=== PATIENT | male | born 1965 | race Caucasian/White ===

== ENCOUNTER 2020-06-04 08:03 | Emergency (ER) | payer BC ==
[2020-06-04 08:20] VITALS: TEMP 98.1
--- NOTE | 2020-06-04 08:33 | ED ---
Skin/Abscess/FB HPI - General Source: patient Mode of arrival: ambulatory Limitations: no limitations <Yumiko Mandujano - Last Filed: 06/04/20 09:35> <Mirta Baum - Last Filed: 06/05/20 15:57> - General Chief complaint: Skin/Abscess/Foreign Body Stated complaint: Left side pain Time Seen by Provider: 06/04/20 08:21 - History of Present Illness Initial comments: 55-year-old male presenting today for chief complaint of left flank bruising. Patient states that he over swelling during a softball game on the when he felt a pain in his side like he strained something. He states he had a localized area that was tender to touch Bruised next day. States bruising is no present more anterior and posteriorly rather than localized to the flank. Denies significant pain, denies CP, SOB, history of AAA, abdominal pain, nausea, vomiting, lightheadedness, denies anticoagulation use. Denies direct blunt trauma. Patient denies epigastric pain. No additional complaints. upon arrival patient appears well there is no signs of acute distress. (Yumiko Mandujano) - Related Data Home Medications Medication Instructions Recorded Confirmed No Known Home Medications 10/04/16 10/04/16 Allergies Allergy/AdvReac Type Severity Reaction Status Date / Time No Known Allergies Allergy Verified 06/04/20 08:16 Review of Systems ROS Other: All systems not noted in ROS Statement are negative. <Yumiko Mandujano - Last Filed: 06/04/20 09:35> ROS Other: All systems not noted in ROS Statement are negative. <Mirta Baum - Last Filed: 06/05/20 15:57> ROS Statement: Those systems with pertinent positive or pertinent negative responses have been documented in the HPI. Past Medical History Past Medical History: No Reported History History of Any Multi-Drug Resistant Organisms: MRSA Date of last positivie culture/infection: 2012 MDRO Source:: face Past Surgical History: No Surgical Hx Reported Past Psychological History: No Psychological Hx Reported Smoking Status: Never smoker Past Alcohol Use History: None Reported Past Drug Use History: None Reported <Yumiko Mandujano - Last Filed: 06/04/20 09:35> General Exam Limitations: no limitations <Yumiko Mandujano - Last Filed: 06/04/20 09:35> - General Exam Comments Initial Comments: General: The patient is awake and alert, in no distress, and does not appear acutely ill. Eye: Pupils are equal, round and reactive to light, extra-ocular movements are intact. No nystagmus. There is normal conjunctiva bilaterally. No signs of icterus. Gastrointestinal: Soft, non-distended, non-tender abdomen without masses or organomegaly noted. There is no rebound or guarding present. No CVA tenderness. No masses. Musculoskeletal: Normal ROM, no tenderness. Strength 5/5. Sensation intact. Pulses equal bilaterally 2+. Neurological: A&O x 3. CN II-XII intact grossly, There are no obvious motor or sensory deficits. Coordination appears grossly intact. Speech is normal. Skin: Skin is warm and dry and no rashes. Ecchymosis that is light purple, yellow in color on the left side just superior to hip, point localized area of tenderness midline side. Patient winces. No pain along other aspect of the bruising. Psychiatric: Cooperative, appropriate mood & affect, normal judgment. (Yumiko Mandujano) Course Vital Signs 06/04/20 06/04/20 08:16 09:03 Temperature 98.1 F Pulse Rate 90 89 Respiratory 18 16 Rate Blood Pressure 113/70 121/79 O2 Sat by Pulse 98 99 Oximetry Medical Decision Making <Yumiko Mandujano - Last Filed: 06/04/20 09:35> <Mirta Baum - Last Filed: 06/05/20 15:57> - Medical Decision Making 55yo male presenting for flank pain after stretching, point localized tenderness, bruising, it appears old. US performed bedside by Dr. Baum, hematoma noted. Small. I feel ecchymosis had spread from hematoma due to positioning at night. Patient appears well not distress. recommend symptomatic treatment, applying heat-monitoring, tylenol for pain. Patietn is agreeable to care plan and discharge as is my attending provider. (Yumiko Mandujano) I was available for consultation in the emergency department. The history and physical exam were done by the midlevel provider. I was consulted for this patients care. I reviewed the case with the midlevel provider and based on their presentation of the patient, I agree with the assessment, medical decision making and plan of care as documented. I performed a bedside soft tissue ultrasound which demonstrated a small subcutaneous hematoma measuring 2.0 x 2.0 cm. No fluid in the splenorenal fossa. Normal peristalsing bowel. Spleen and kidney with normal contours. Chart was dictated using [employer] dictation software. Attempts were made to correct any dictation errors however some typographical errors may persist. Patient was seen during a national state of emergency due to the Covid-19 pandemic. (Mirta Baum) Disposition Is patient prescribed a controlled substance at d/c from ED?: No Time of Disposition: 08:33 <Yumiko Mandujano - Last Filed: 06/04/20 09:35> <Mirta Baum - Last Filed: 06/05/20 15:57> Clinical Impression: Hematoma, Muscle tear, Ecchymosis Disposition: HOME SELF-CARE Condition: Good Instructions (If sedation given, give patient instructions): Ecchymosis (ED) Additional Instructions: Please use medication as discussed. Please follow-up with family doctor in the next 2 days. Please return to emergency room if the symptoms increase or worsen or for any other concerns. Referrals: None,Stated [Primary Care Provider] - 1-2 days
[2020-06-04 09:05] VITALS: BP 121/79; PULSE 89; RESP 16
== END 2020-06-04 09:04 | disposition home or self-care (01) ==
LOC: EC 08:03
DX: S30.1XXA Contusion of abdominal wall, initial encounter (principal); X58.XXXA Exposure to other specified factors, initial encounter; Y93.64 Activity, baseball
CPT/HCPCS: 99283

== ENCOUNTER 2022-03-31 07:46 | Inpatient (IN) | payer BC ==
[2022-03-31] MEDS ORDERED: KETOROLAC 15 MG/ML 1 ML VIAL IM STA (08:11)
--- NOTE | 2022-03-31 08:55 | ED ---
General Adult HPI - General Chief complaint: Fall Stated complaint: fall 4' from ladder, back pain Time Seen by Provider: 03/31/22 08:00 Source: patient, RN notes reviewed, old records reviewed Mode of arrival: ambulatory Limitations: no limitations - History of Present Illness Initial comments: This is a 56-year-old male who presents emergency Department complaining that he fell off of a ladder and he was about 4 feet high. Patient states he landed on his upper left back in the rib area. Patient states he only area of tenderness is along the ribs in the back. Patient states it hurts take a deep breath but is not short of breath. Patient denies any anterior chest pain. Patient denies any back pain in the center of his back. Patient denies any lower back pain. Patient denies any abdominal pain. Patient denies any extremity pain. Patient denies hitting his head or neck. Patient denies headache or neck pain - Related Data Home Medications Medication Instructions Recorded Confirmed No Known Home Medications 10/04/16 03/31/22 Allergies Allergy/AdvReac Type Severity Reaction Status Date / Time No Known Allergies Allergy Verified 03/31/22 09:44 Review of Systems ROS Statement: Those systems with pertinent positive or pertinent negative responses have been documented in the HPI. ROS Other: All systems not noted in ROS Statement are negative. Past Medical History Past Medical History: No Reported History History of Any Multi-Drug Resistant Organisms: MRSA Date of last positivie culture/infection: 2012 MDRO Source:: face Past Surgical History: No Surgical Hx Reported Past Psychological History: No Psychological Hx Reported Smoking Status: Never smoker Past Alcohol Use History: None Reported Past Drug Use History: None Reported General Exam - General Exam Comments Initial Comments: GENERAL: Patient is well-developed and well-nourished. Patient is nontoxic and well-hydrated and is in mild distress. ENT: Neck is soft and supple. No significant lymphadenopathy is noted. Oropharynx is clear. Moist mucous membranes. Neck has full range of motion without eliciting any pain. EYES: The sclera were anicteric and conjunctiva were pink and moist. Extraocular movements were intact and pupils were equal round and reactive to light. Eyelids were unremarkable. PULMONARY: Unlabored respirations. Good breath sounds bilaterally. No audible rales rhonchi or wheezing was noted. CARDIOVASCULAR: There is a regular rate and rhythm without any murmurs gallops or rubs. Patient has tenderness to the posterior left rib cage. ABDOMEN: Soft and nontender with normal bowel sounds. SKIN: Skin is clear with no lesions or rashes and otherwise unremarkable. NEUROLOGIC: Patient is alert and oriented x3. Cranial nerves II through XII are grossly intact. Motor and sensory are also intact. Normal speech, volume and content. Symmetrical smile. MUSCULOSKELETAL: Normal extremities with adequate strength and full range of motion. LYMPHATICS: No significant lymphadenopathy is noted PSYCHIATRIC: Normal psychiatric evaluation. Limitations: no limitations Course Vital Signs 03/31/22 03/31/22 07:57 11:31 Temperature 98.2 F Pulse Rate 69 68 Respiratory 18 16 Rate Blood Pressure 127/83 111/70 O2 Sat by Pulse 95 96 Oximetry Procedures - Chest Tube Insertion Consent Obtained: verbal consent Side of Procedure: left Indication: Pneumothorax Placed on monitor/pulse oximetry: Yes Site Prep: Povidone-Iodine Local Anesthesia: Lidocaine 1% Insertion Site: Midaxillary, Other (Second intercostal space) Tube Size (Yoruba): Other (Thoravent was used) Returns: Air Sutured in Place: No Attached to Suction: No Type of Suction: Other (Thoravent) Repeat X-ray Results: Lung Inflated Medical Decision Making - Medical Decision Making Chest x-ray and rib x-rays show a fourth fractured rib posteriorly as well as a 5820% pneumothorax. I also believe there is a rib on the lateral aspect about rib 8 that appears to have potential fracture. I placed the thoravent and the patient and on re-x-ray of the chest showed complete resolution of the pneumothorax. Placement of the thoravent looked in good position. I spoke with Dr. Boothe he agreed to admit the patient admitted the patient I consult the cardiothoracic pulmonary and Dr. Mccauley. - Lab Data Result diagrams: 03/31/22 11:06 03/31/22 11:06 Lab Results 03/31/22 03/31/22 Range/Units 11:06 11:06 WBC 12.2 H (3.8-10.6) k/uL RBC 4.65 (4.30-5.90) m/uL Hgb 14.8 (13.0-17.5) gm/dL Hct 44.2 (39.0-53.0) % MCV 95.2 (80.0-100.0) fL MCH 31.8 (25.0-35.0) pg MCHC 33.4 (31.0-37.0) g/dL RDW 12.6 (11.5-15.5) % Plt Count 200 (150-450) k/uL MPV 7.4 Neutrophils % 70 % Lymphocytes % 23 % Monocytes % 5 % Eosinophils % 1 % Basophils % 0 % Neutrophils # 8.5 H (1.3-7.7) k/uL Lymphocytes # 2.7 (1.0-4.8) k/uL Monocytes # 0.6 (0-1.0) k/uL Eosinophils # 0.1 (0-0.7) k/uL Basophils # 0.0 (0-0.2) k/uL Sodium 142 (137-145) mmol/L Potassium 4.3 (3.5-5.1) mmol/L Chloride 106 (98-107) mmol/L Carbon Dioxide 24 (22-30) mmol/L Anion Gap 12 mmol/L BUN 21 H (9-20) mg/dL Creatinine 1.17 (0.66-1.25) mg/dL Est GFR (CKD-EPI)AfAm 79 (>60 ml/min/1.73 sqM) Est GFR (CKD-EPI)NonAf 68 (>60 ml/min/1.73 sqM) Glucose 137 H (74-99) mg/dL Calcium 9.2 (8.4-10.2) mg/dL Total Bilirubin 0.8 (0.2-1.3) mg/dL AST 37 (17-59) U/L ALT 23 (4-49) U/L Alkaline Phosphatase 79 (38-126) U/L Total Protein 7.8 (6.3-8.2) g/dL Albumin 4.6 (3.5-5.0) g/dL Disposition Clinical Impression: Rib fractures, Pneumothorax Disposition: ADMITTED IP TO THIS HOSP Referrals: None,Stated [Primary Care Provider] - 1-2 days Time of Disposition: 13:28
--- NOTE | 2022-03-31 09:20 | XR ---
EXAMINATION TYPE: XR ribs LT w pa chest xray DATE OF EXAM: 03/31/2022 CLINICAL HISTORY: Chest and left-sided rib pain after fall injury. TECHNIQUE: Single frontal view of the chest is obtained. A frontal and oblique images left-sided ribs . COMPARISON: Chest x-ray September 25, 2011 FINDINGS: There is a small size left pneumothorax near 20%. There is adjacent displaced fracture of the posterior left fourth rib. There is left basilar opacity. Right lung is clear. The cardiac silhou ette size is upper limits of normal. Dedicated rib images show no definitive additional displaced fractures. IMPRESSION: 1. Acute displaced posterior left fourth rib fracture 2. Small left apical pneumothorax estimated 15-20% with left basilar small to tiny pleural fluid fritz ection or blood product and associated basilar atelectasis and/or infiltrate. Critical results communicated to emergency room physician via telephone at time of dictation.
[2022-03-31] MEDS ORDERED: HYDROmorphone 0.5 MG/0.5 ML SYRINGE IVP STA (10:16)
[2022-03-31] MEDS ORDERED: KETOROLAC 15 MG/ML 1 ML VIAL IVP STA (10:16)
[2022-03-31] MEDS ORDERED: LIDOCAINE 1% INJ 10MG/ML (5 ML VIAL-PF) SQ ONE (10:16)
[2022-03-31] MEDS ORDERED: MIDAZOLAM 1 MG/ML 5 ML VIAL IV STA (11:18)
[2022-03-31 11:31] LABS: Albumin 4.6 g/dL (3.5-5.0); Calcium 9.2 mg/dL (8.4-10.2); Potassium 4.3 mmol/L (3.5-5.1); Total Bilirubin 0.8 mg/dL (0.2-1.3); Total Protein 7.8 g/dL (6.3-8.2)
[2022-03-31 11:33] LABS: Basophils % (A) 0 %; Eosinophils # (A) 0.1 k/uL (0-0.7); Eosinophils % (A) 1 %; HCT 44.2 % (39.0-53.0); HGB 14.8 gm/dL (13.0-17.5); Lymphocytes # (A) 2.7 k/uL (1.0-4.8); Lymphocytes % (A) 23 %; MCH 31.8 pg (25.0-35.0); MCHC 33.4 g/dL (31.0-37.0); MCV 95.2 fL (80.0-100.0); Mean Platelet Volume 7.4; Monocytes # (A) 0.6 k/uL (0-1.0); Monocytes % (A) 5 %; Neutrophils # (A) 8.5 k/uL (1.3-7.7); Neutrophils % (A) 70 %; Platelet Count 200 k/uL (150-450); RBC 4.65 m/uL (4.30-5.90); RDW 12.6 % (11.5-15.5); WBC 12.2 k/uL (3.8-10.6)
--- NOTE | 2022-03-31 13:13 | XR ---
EXAMINATION TYPE: XR chest 2V DATE OF EXAM: 03/31/2022 COMPARISON: X-ray performed earlier same day HISTORY: Follow-up post-chest tube insertion for left-sided pneumothorax TECHNIQUE: Frontal and lateral views of the chest are obtained. FINDINGS: Interval insertion of a left anterior chest tube with the apex seen at the lateral aspect of the left upper lung zone. Redemonstration of the slightly displaced fracture of the posterior aspect of the l eft fourth rib. Interval regression of the left sided pneumothorax with residual left apical pneumoth orax measuring up to 7 mm. Persistent small left pleural fluid/hemothorax with suspected left basal pulmonary atelectasis. Uncha nged remainder of the lungs. No right-sided pleural effusion or right-sided pneumothorax. No gross ca rdiomegaly. IMPRESSION: Interval insertion of the left chest tube with smaller left-sided pneumothorax as described above.
[2022-03-31] MEDS ORDERED: HYDROcodone/APAP 5-325MG 1 EACH TAB PO PRN (13:29)
[2022-03-31] MEDS ORDERED: NALOXONE 0.4 MG/ML 1 ML VIAL IV PRN (13:29)
--- NOTE | 2022-03-31 14:43 | P.GSCN ---
History of Present Illness Consult date: 03/31/22 Reason for Consult: Left pneumothorax status post fall from ladder. Requesting physician: Meng Yancey History of present illness: This is a 56-year-old gentleman who does not follow with a primary care physician on a regular basis. He reports no significant medical history except for obesity and he is a lifetime nonsmoker. The patient reports about 3 PM yesterday he was up on a ladder trying to get some close down out of his garage. When the patient was on about the fourth step of the latter, he reports that the ladder gave way and he ended up falling on his left side mainly his back. He denies hitting his head, losing consciousness, bowel or bladder function. Denies any recent fever, chills, nausea, vomiting, abdominal pain, lower back pain, lightheadedness, presyncope, syncope, headache or shortness of breath. The patient reports he was able to get to his feet on his own accord and waited to present to the emergency department until this morning. He states that he was having increased pain to his left chest especially with taking a deep breath, and he reports he was unable to sleep throughout the night due to the pain. An x-ray ribs left with PA chest x-ray was completed which demonstrated an acute displaced posterior left fourth rib fracture, a small left apical pneumothorax estimated 15-20% with left basilar small to tiny pleural fluid collection or blood product and associated basilar atelectasis and/or infiltrate. Due to the findings of a 15-20% left sided pneumothorax the e mergency room physician placed a left Thoravent chest tube. A follow-up chest x-ray showed an interval insertion of a left chest tube with a residual left apical pneumothorax measuring up to 7 mm. On examination the patient denies any complaints of shortness of breath at this time although is complaining of some pain to his left chest with taking a deep breath. The left chest Thoravent does have an intermittent air leak with coughing. Due to the left pneumothorax and subsequent placement of a left chest Thoravent a consult was placed to Dr. Jordy Wong from cardiothoracic surgery for further evaluation and treatment recommendations. Review of Systems A 14 point review of systems was completed and was negative except as mentioned in the HPI. Past Medical History Past Medical History: No Reported History History of Any Multi-Drug Resistant Organisms: MRSA Year Discovered:: 2012 MDRO Source:: face Past Surgical History: No Surgical Hx Reported Past Psychological History: No Psychological Hx Reported Smoking Status: Never smoker Past Alcohol Use History: None Reported Past Drug Use History: None Reported - Past Family History Mother Additional Family Medical History / Comment(s): History of brain aneurysm Father Family Medical History: Cancer (Prostate cancer) Additional Family Medical History / Comment(s): Alzheimer's/dementia Medications and Allergies Home Medications Medication Instructions Recorded Confirmed Type No Known Home Medications 10/04/16 03/31/22 History Allergies Allergy/AdvReac Type Severity Reaction Status Date / Time No Known Allergies Allergy Verified 03/31/22 09:44 Surgical - Exam Vital Signs Temp Pulse Resp BP Pulse Ox 98.2 F 69 18 127/83 95 03/31/22 07:57 03/31/22 07:57 03/31/22 07:57 03/31/22 07:57 03/31/22 07:57 - General Mild pain to his left chest. well developed, well nourished, no distress, no pain, obese - Eyes PERRL, normal ocular movement, no pale, no icteric - ENT normal pinna, normal nares, normal mucosa, no hearing loss, no congestion - Neck Neck is supple, no lymphadenopathy. no masses, no bruits, trachea midline, no venous distension - Respiratory Lungs sounds essentially clear throughout, diminished to his left lower lobe. Respirations are symmetrical and nonlabored. No wheezes, rhonchi or crackles. Left chest Thoravent in place with intermittent air leak present. - Cardiovascular Regular rhythm and rate. S1 and S2 present, negative for S3, gallop or murmur. No edema present. - Abdomen Abdomen is soft, nontender and nondistended. Active bowel sounds present all 4 abdominal quadrants. No guarding or rigidity. No organomegaly appreciated. - Genitourinary Deferred - Rectum Deferred - Integumentary No clubbing or cyanosis is present. no rash, no growths, no abnormal pigmentation - Neurologic normal coordination, normal sensation - Musculoskeletal Equal strength in bilateral upper and lower extremities. normal gait, normal posture - Psychiatric oriented to time, oriented to person, oriented to place, speech is normal, mem ory intact Results - Labs 03/31/22 11:06 03/31/22 11:06 Abnormal Lab Results - Last 24 Hours (Table) 03/31/22 03/31/22 Range/Units 11:06 11:06 WBC 12.2 H (3.8-10.6) k/uL Neutrophils # 8.5 H (1.3-7.7) k/uL BUN 21 H (9-20) mg/dL Glucose 137 H (74-99) mg/dL Diabetes panel 03/31/22 Range/Units 11:06 Sodium 142 (137-145) mmol/L Potassium 4.3 (3.5-5.1) mmol/L Chloride 106 (98-107) mmol/L Carbon Dioxide 24 (22-30) mmol/L BUN 21 H (9-20) mg/dL Creatinine 1.17 (0.66-1.25) mg/dL Glucose 137 H (74-99) mg/dL Calcium 9.2 (8.4-10.2) mg/dL AST 37 (17-59) U/L ALT 23 (4-49) U/L Alkaline Phosphatase 79 (38-126) U/L Total Protein 7.8 (6.3-8.2) g/dL Albumin 4.6 (3.5-5.0) g/dL Calcium panel 03/31/22 Range/Units 11:06 Calcium 9.2 (8.4-10.2) mg/dL Albumin 4.6 (3.5-5.0) g/dL Pituitary panel 03/31/22 Range/Units 11:06 Sodium 142 (137-145) mmol/L Potassium 4.3 (3.5-5.1) mmol/L Chloride 106 (98-107) mmol/L Carbon Dioxide 24 (22-30) mmol/L BUN 21 H (9-20) mg/dL Creatinine 1.17 (0.66-1.25) mg/dL Glucose 137 H (74-99) mg/dL Calcium 9.2 (8.4-10.2) mg/dL Adrenal panel 03/31/22 Range/Units 11:06 Sodium 142 (137-145) mmol/L Potassium 4.3 (3.5-5.1) mmol/L Chloride 106 (98-107) mmol/L Carbon Dioxide 24 (22-30) mmol/L BUN 21 H (9-20) mg/dL Creatinine 1.17 (0.66-1.25) mg/dL Glucose 137 H (74-99) mg/dL Calcium 9.2 (8.4-10.2) mg/dL Total Bilirubin 0.8 (0.2-1.3) mg/dL AST 37 (17-59) U/L ALT 23 (4-49) U/L Alkaline Phosphatase 79 (38-126) U/L Total Protein 7.8 (6.3-8.2) g/dL Albumin 4.6 (3.5-5.0) g/dL - Imaging Chest x-ray: report reviewed, image reviewed Assessment and Plan Assessment: 1. Left pneumothorax, status post fall from ladder 2. Left-sided chest pain, secondary to above 3. Obesity 4. Lifetime nonsmoker Plan: The patient was seen and examined at his bedside in the emergency department. His chart and diagnostics were reviewed. His case was discussed in detail with Dr. Jordy Wong from cardiothoracic surgery. We will place his Thoravent to low continuous wall suction -20 cm H2O. Continue to monitor for air leak resolution. Monitor daily chest x-rays. We will add Toradol for pain control. We will order an incentive spirometry and encourage use 10 times every hour while awake. Increase activity as tolerated, may remove Pleur-evac from suction when ambulating. Medical management other comorbidities per primary care service. More recommendations to follow based on patient's clinical course. Thank you for this consult and we look for to working with you in the care of this patient. Time with Patient: Greater than 30
--- NOTE | 2022-03-31 15:44 | P.CNPUL ---
History of Present Illness Consult date: 03/31/22 Reason for consult: pneumothorax, other Chief complaint: Pneumothorax, fall, trauma History of present illness: 56-year-old male patient who presented to the emergency department but are not 03/31/2022 after sustaining a fall from a ladder 4 feet off the ground and landing on his back in the rib area while getting something out of the attic. Patient stated that the only area of tenderness was along the ribs in the back, and it hurt to take a deep breath, but patient was not complaining of any dyspnea. No complaints of anterior chest pain. No lower back pain, no abdominal pain, no pain in extremities. Denies hitting his head or neck. Chest x-ray of the ribs showed acute displaced posterior left fourth rib fracture, and small left apical pneumothorax estimated at 50-20% with a left basilar small to tiny pleural fluid collection and associated basilar atelectasis. Left sided Thoravent chest tube was placed by ER physician, and postprocedure chest x-ray showed interval insertion of the left chest to with smaller left-sided pneumothorax. Cardiothoracic surgery has been consulted please defer to the co nsultation note, lab evaluation showed white blood cell count of 12.2, hemoglobin of 14.8, electrolytes and renal profile were unremarkable, glucose was 137, LFTs are within normal limits. Patient is receiving Toradol, Alstead, and IV Dilaudid for breakthrough pain. Patient is currently on 2 L of oxygen pulse ox is 98%, he is afebrile, hemodynamically stable. Review of Systems All systems: negative Constitutional: Denies chills, Denies fever Eyes: denies blurred vision, denies pain Ears, nose, mouth and throat: Denies headache, Denies sore throat Cardiovascular: Denies chest pain, Denies shortness of breath Respiratory: Reports pain, Denies cough Gastrointestinal: Denies abdominal pain, Denies diarrhea, Denies nausea, Denies vomiting Musculoskeletal: Denies myalgias Integumentary: Denies pruritus, Denies rash Neurological: Denies numbness, Denies weakness Psychiatric: Denies anxiety, Denies depression Endocrine: Denies fatigue, Denies weight change Past Medical History Past Medical History: No Reported History History of Any Multi-Drug Resistant Organisms: MRSA Date of last positivie culture/infection: 2012 MDRO Source:: face Past Surgical History: No Surgical Hx Reported Past Psychological History: No Psychological Hx Reported Smoking Status: Never smoker Past Alcohol Use History: None Reported Past Drug Use History: None Reported - Past Family History Mother Additional Family Medical History / Comment(s): History of brain aneurysm Father Family Medical History: Cancer (Prostate cancer) Additional Family Medical History / Comment(s): Alzheimer's/dementia Medications and Allergies Home Medications Medication Instructions Recorded Confirmed Type No Known Home Medications 10/04/16 03/31/22 History Allergies Allergy/AdvReac Type Severity Reaction Status Date / Time No Known Allergies Allergy Verified 03/31/22 09:44 Physical Exam Vitals: Vital Signs Temp Pulse Resp BP Pulse Ox 03/31/22 13:29 72 18 114/88 98 03/31/22 11:31 68 16 111/70 96 03/31/22 07:57 98.2 F 69 18 127/83 95 Intake and Output 03/31/22 03/31/22 03/31/22 06:59 14:59 22:59 Other: Weight 104.326 kg GENERAL EXAM: Alert, very pleasant, 48-year-old white male on 2 L of oxygen the pulse ox of 98% comfortable in no apparent distress. HEAD: Normocephalic/atraumatic. EYES: Normal reaction of pupils, equal size. Conjunctiva pink, sclera white. NOSE: Clear with pink turbinates. THROAT: No erythema or exudates. NECK: No masses, no JVD, no thyroid enlargement, no adenopathy. CHEST: No chest wall deformity. Symmetrical expansion. Left upper chest thoravent in place connected to a Pleur-evac to continuous wall suction, and int ermittent air leak LUNGS: Equal air entry with no crackles, wheeze, rhonchi or dullness. CVS: Regular rate and rhythm, normal S1 and S2, no gallops, no murmurs, no rubs ABDOMEN: Soft, nontender. No hepatosplenomegaly, normal bowel sounds, no guarding or rigidity. EXTREMITIES: No clubbing, no edema, no cyanosis, 2+ pulses and upper and lower extremities. MUSCULOSKELETAL: Muscle strength and tone normal. SPINE: No scoliosis or deformity SKIN: No rashes CENTRAL NERVOUS SYSTEM: Alert and oriented -3. No focal deficits, tone is normal in all 4 extremities. PSYCHIATRIC: Alert and oriented -3. Appropriate affect. Intact judgment and insight. Results - Laboratory Findings CBC and BMP: 04/01/22 08:42 04/01/22 08:42 Abnormal lab findings: Abnormal Labs 03/31/22 03/31/22 11:06 11:06 WBC 12.2 H Neutrophils # 8.5 H BUN 21 H Glucose 137 H - Diagnostic Findings Chest x-ray: report reviewed, image reviewed Assessment and Plan Plan: Assessment: #1. Left apical pneumothorax related to acute displaced left fourth rib fracture, status post left thoravent placement on 03/31/2022 #2. Fall, sustaining left-sided fourth rib fracture and left apical pneumothorax #3. Lifetime nonsmoker Plan: Provide incentive spirometer Today's chest x-ray has been reviewed His left-sided thoravent has been placed to low continuous wall suction Continue monitoring for air leak Follow-up chest x-ray tomorrow Maintain pain control We'll continue to follow I have personally seen and examined the patient, performed the documentation and the assessment and plan as written. Number of minutes spent on the visit: [15] I have personally seen and examined the patient and reviewed the documentation. I performed a joint evaluation with the nurse practitioner in this evaluation was done more than 30 minutes. I fully agree with the documentation above and the plan of care.. The patient was seen in conjunction with the nurse practitioner. The situation was on a more than 30 minutes. The patient a Thoravent inserted on the left. Left lung is adequately expanded. Keep the patient's Thoravent attached to a Pleur-evac. Incentive spirometer. Pain control. Repeat chest x-ray in the morning. We'll continue to follow. Time with Patient: Greater than 30
[2022-03-31] MEDS: KETOROLAC 15 MG/ML 1 ML VIAL IVP SCH (17:44)
[2022-04-01] MEDS: KETOROLAC 15 MG/ML 1 ML VIAL IVP SCH ×4 (00:37→17:54)
--- NOTE | 2022-04-01 00:42 | P.CONS ---
History of Present Illness - Reason for Consult Consult date: 03/31/22 Medical management - Chief Complaint Pneumothorax - History of Present Illness Patient is a 56-year-old without significant past medical history presents to ER after he fell off a ladder from about 4 feet high. Patient landed on his left upper back and rib area. Presents to ER due to tenderness and shortness of breath with deep breathing. Patient was also having pleuritic chest pain. Denies any complaints of shoulder pain. He denies any hitting his head. Complains of back pain and leg pain. Patient otherwise denies any recent illnesses. No cough or sputum production. No chest pain. X-ray of the ribs and chest x-ray showed acute displaced posterior left fourth rib fracture. Small left apical pneumothorax estimated 15 to 20% with left basilar small to tiny pleural fluid collection or blood product and associated basilar atelectasis Laboratory data showed WBC 12.2 hemoglobin 14.8 and platelets 200 Sodium 142 potassium 4.3 chloride 106 bicarb is 24 BUN 21 and creatinine 1.17 and blood sugar is 137 lactic acid 0.6 liver enzymes are not elevated. Review of Systems Constitutional: Patient denies any fever or chills . No generalized weakness or weight loss. Abdomen: Patient denied nausea vomiting and diarrhea and abdominal pain. Cardiovascular: Patient denies any chest pain or short of breath no palpitations. Respiratory: patient denied any cough or sputum production. No shortness of breath Neurologic: Patient denied any numbness or tingling headache. Musculoskeletal: Patient denies any complaints of joint swelling or deformity.Left upper chest pain Skin: Negative Psychiatric: Negative Endocrine: No heat or cold intolerance. No recent weight gain. Genitourinary: No dysuria or hematuria. All other 14 point ROS negative except the above Past Medical History Past Medical History: No Reported History History of Any Multi-Drug Resistant Organisms: MRSA Year Discovered:: 2012 MDRO Source:: face Past Surgical History: No Surgical Hx Reported Past Psychological History: No Psychological Hx Reported Smoking Status: Never smoker Past Alcohol Use History: None Reported Past Drug Use History: None Reported - Past Family History Mother Additional Family Medical History / Comment(s): History of brain aneurysm Father Family Medical History: Cancer (Prostate cancer) Additional Family Medical History / Comment(s): Alzheimer's/dementia Medications and Allergies Home Medications Medication Instructions Recorded Confirmed Type No Known Home Medications 10/04/16 03/31/22 History Allergies Allergy/AdvReac Type Severity Reaction Status Date / Time No Known Allergies Allergy Verified 03/31/22 09:44 Physical Exam Vitals: Vital Signs Temp Pulse Resp BP Pulse Ox 03/31/22 13:29 72 18 114/88 98 03/31/22 11:31 68 16 111/70 96 03/31/22 07:57 98.2 F 69 18 127/83 95 Intake and Output 03/31/22 03/31/22 03/31/22 06:59 14:59 22:59 Other: Weight 104.326 kg PHYSICAL EXAMINATION: Patient is lying in the bed comfortably, no acute distress, awake alert and oriented.. HEENT: Normocephalic. Neck is supple. Pupils reactive. Nostrils clear. Oral cavity is moist. Neck reveals no JVD, carotid bruits, or thyromegaly. CHEST EXAMINATION: Trachea is central. Symmetrical expansion. Lung gray clear to auscultation and percussion. Left upper anterior Thora vent in place. CARDIAC: Normal S1, S2 with no gallops. No murmurs ABDOMEN: Soft. Bowel sounds normal. No organomegaly. No abdominal bruits. Extremities: reveal no edema. No clubbing or cyanosis Neurologically awake, alert, oriented x3 with well-coordinated movements. No focal deficits noted Skin: No rash or skin lesions. Psychiatric: Cooperative. Nonsuicidal Musculoskeletal: No joint swelling or deformity. Normal range of motion. Results CBC & Chem 7: 03/31/22 11:06 03/31/22 11:06 Labs: Abnormal Lab Results - Last 24 Hours (Table) 03/31/22 03/31/22 03/31/22 Range/Units 11:06 11:06 14:52 WBC 12.2 H (3.8-10.6) k/uL Neutrophils # 8.5 H (1.3-7.7) k/uL BUN 21 H (9-20) mg/dL Glucose 137 H (74-99) mg/dL Plasma Lactic Acid Scooby 0.6 L (0.7-2.0) mmol/L Assessment and Plan Assessment: Acute displaced posterior left fourth rib fracture. Left apical pneumothorax 15-20% status post Thora vent placement. Left basilar small pleural fluid collection versus blood product. Status post fall off a ladder and fell concrete 4 feet down. DVT prophylaxis. Plan: Patient will be current on pain management with Dilaudid and Toradol. Status post Thora vent placement. Follow-up repeat chest x-ray. Follow-up CBC and BMP. Patient was encouraged with incentive spirometry. Further recommendations based on clinical course. CT surgery and pulmonary is on board. Thank you for your consult. Time with Patient: Greater than 30
--- NOTE | 2022-04-01 08:51 | XR ---
EXAMINATION TYPE: XR chest 1V portable DATE OF EXAM: 04/01/2022 Comparison: 03/31/2022 Clinical History: 56-year-old male follow-up Left-sided pneumothorax Findings: Ongoing small left pleural effusion with left basilar opacity. Heart normal size. Left posterior four th rib fracture with approximately half shaft's width displacement is redemonstrated. Small left apic al pneumothorax measuring 1.2 cm versus 7 mm, previously. Left Thora vent catheter in place. Impression: 1. Left-sided Thora vent catheter in place. Redemonstrated displaced left posterior fourth rib fractu re. A small left apical pneumothorax remains, minimally increased in size at 1.2 cm versus 7 mm, prev iously. 2. Continued small left pleural effusion with adjacent atelectasis and/or consolidation.
[2022-04-01 09:19] LABS: Basophils % (A) 0 %; Eosinophils # (A) 0.2 k/uL (0-0.7); Eosinophils % (A) 2 %; HCT 43.7 % (39.0-53.0); Lymphocytes # (A) 1.3 k/uL (1.0-4.8); Lymphocytes % (A) 17 %; MCH 31.3 pg (25.0-35.0); MCV 97.7 fL (80.0-100.0); Mean Platelet Volume 7.2; Monocytes # (A) 0.5 k/uL (0-1.0); Monocytes % (A) 6 %; Neutrophils # (A) 5.5 k/uL (1.3-7.7); Neutrophils % (A) 72 %; Platelet Count 176 k/uL (150-450); RBC 4.47 m/uL (4.30-5.90); RDW 12.2 % (11.5-15.5); WBC 7.6 k/uL (3.8-10.6)
[2022-04-01 09:39] LABS: Calcium 9.1 mg/dL (8.4-10.2); Potassium 4.5 mmol/L (3.5-5.1)
--- NOTE | 2022-04-01 09:56 | P.PN ---
Subjective Progress Note Date: 04/01/22 Principal diagnosis: Left apical pneumothorax status post fall from ladder with an acute displaced left fourth rib fracture, with subsequent left Thoravent placed by the emergency room physician. No significant past medical history and is a lifetime nonsmoker. The patient was seen and examined today 04/01/2022 at his bedside on the cardiac stepdown unit. Currently he is up ambulating in his room, is awake, alert, oriented 3 and is in no acute distress. Denies any complaints of shortness of breath at this time and is complaining of some intermittent left-sided chest ashley n with taking a deep breath and coughing. Oxygen saturations are 97% on room air and he is achieving 1395-6431 mL on his incentive spirometry with encouragement. Left Thoravent chest tube remains in place to low continuous wall suction -20 cm H2O. No air leak is present. No drainage present. The patient reports that his current pain medication regimen is controlling his pain well. The chest x-ray this morning read demonstrates a displaced left posterior fourth rib fracture and a small left apical pneumothorax with a continued small left pleural effusion with adjacent atelectasis or consolidation. He remains hemodynamically stable and has been afebrile in the last 24 hours. Objective - Vital Signs Vital signs: Vital Signs Temp 97.9 F 04/01/22 04:15 Pulse 69 04/01/22 04:15 Resp 16 04/01/22 04:15 BP 111/69 04/01/22 04:15 Pulse Ox 97 04/01/22 04:15 FiO2 Intake & Output 03/31/22 04/01/22 04/01/22 18:59 06:59 18:59 Intake Total 240 240 Balance 240 240 Weight 104.326 kg 169 kg Intake: Oral 240 240 Other: Voiding Method Toilet # Voids 2 - Exam CONSTITUTIONAL: Ambulating in his room on the cardiac stepdown unit, appears comfortable, cooperative, no apparent acute distress. HEENT: Neck is supple, no JVD, no lymphadenopathy. RESPIRATORY: Lungs sounds essentially clear throughout, diminished to his bilateral bases, left greater than right. Respirations are symmetrical and nonlabored. Currently on room air with oxygen saturations 97%. Able to achieve 9656-4411 mL on his incentive spirometry. Strong cough. Left Thoravent in place to low continuous wall suction -20 cm H2O. No air leak is present. No drainage is present. CARDIOVASCULAR: Regular rhythm and rate. S1 and S2 present, negative for S3, gallop or murmur. Remote telemetry is showing normal sinus rhythm heart rate 69 BPM. GASTROINTESTINAL: Abdomen soft, nontender, nondistended. Active bowel sounds present 4 quadrants. Tolerating diet. No guarding or rigidity. GENITOURINARY: Continues to void. INTEGUMENTARY: Skin is warm and dry with no evidence of clubbing or cyanosis. NEUROLOGIC: Cranial nerves II through XII intact. No focal deficits. MUSKULOSKELETAL: Able to move all extremities, strength equal bilaterally. PSYCHIATRIC: Alert and oriented to person place and time, appropriate affect, intact judgment and insight. INVASIVE LINES AND TUBES: Left Thoravent in place to low continuous wall suction -20 cm H2O. No air leak is present. No drainage is present. - Allied health notes Allied health notes reviewed: nursing - Labs CBC & Chem 7: 04/01/22 08:42 03/31/22 11:06 Labs: Abnormal Lab Results - Last 24 Hours (Table) 03/31/22 03/31/22 03/31/22 Range/Units 11:06 11:06 14:52 WBC 12.2 H (3.8-10.6) k/uL Neutrophils # 8.5 H (1.3-7.7) k/uL BUN 21 H (9-20) mg/dL Glucose 137 H (74-99) mg/dL Plasma Lactic Acid Scooby 0.6 L (0.7-2.0) mmol/L - Imaging and Cardiology Chest x-ray: report reviewed, image reviewed Assessment and Plan Assessment: 1. Left pneumothorax, status post fall from ladder 2. Left-sided chest pain with acute displaced left fourth rib fracture status post fall from ladder 3. Obesity 4. Lifetime nonsmoker Plan: 1. There is no airleak to the left Thoravent this morning. We will cap the Thoravent this morning and obtain a chest x-ray around 12 noon today with further recommendations to follow based on the results of the chest x-ray. 2. Continue to encourage use of incentive spirometry 10 times every hour while awake. 3. Encourage activity as tolerated. 4. Continue to follow daily chest x-rays. 5. Pain control per current when necessary orders. 6. Medical management and other comorbidities per primary care service. 7. More recommendations to follow based on patient's clinical course. Time with Patient: Greater than 30
--- NOTE | 2022-04-01 13:11 | P.PN ---
Subjective Patient is a 56-year-old without significant past medical history presents to ER after he fell off a ladder from about 4 feet high. Patient landed on his left upper back and rib area. Presents to ER due to tenderness and shortness of breath with deep breathing. Patient was also having pleuritic chest pain. Denies any complaints of shoulder pain. He denies any hitting his head. Complains of back pain and leg pain. Patient otherwise denies any recent illnesses. No cough or sputum production. No chest pain. X-ray of the ribs and chest x-ray showed acute displaced posterior left fourth rib fracture. Small left apical pneumothorax estimated 15 to 20% with left basilar small to tiny pleural fluid collection or blood product and associated basilar atelectasis Laboratory data showed WBC 12.2 hemoglobin 14.8 and platelets 200 Sodium 142 potassium 4.3 chloride 106 bicarb is 24 BUN 21 and creatinine 1.17 and blood sugar is 137 lactic acid 0.6 liver enzymes are not elevated. 04/01/2022 patient walking in his room with no difficulty. Has some pain in his left sided rib fracture area, this mild uncontrolled with pain. Still has left upper chest Thora vent in place. He has no dyspnea. He is saturating 96% on room air. Chest x-ray: Left side thora vent catheter in place. Displaced left posterior fourth rib fracture. A small left apical pneumothorax remains. Increase in size 7 mm up to 1.2 cm Leukocytosis resolved. Cardiothoracic surgery team are planning to repeat chest x-ray this afternoon Objective - Vital Signs Vital signs: Vital Signs Temp 97.3 F L 04/01/22 08:00 Pulse 81 04/01/22 08:00 Resp 16 04/01/22 04:15 BP 123/76 04/01/22 08:00 Pulse Ox 96 04/01/22 08:00 FiO2 Intake & Output 03/31/22 04/01/22 04/01/22 18:59 06:59 18:59 Intake Total 240 240 Balance 240 240 Weight 104.326 kg 169 kg Intake: Oral 240 240 Other: Voiding Method Toilet Toilet # Voids 2 - Exam GENERAL: The patient is alert and oriented x3, not in any acute distress. Well developed, well nourished. HEENT: Pupils are round and equally reacting to light. EOMI. No scleral icterus. No conjunctival pallor. Normocephalic, atraumatic. No pharyngeal erythema. No thyromegaly. CARDIOVASCULAR: S1 and S2 present. No murmurs, rubs, or gallops. -PULMONARY: Chest is clear to auscultation, no wheezing or crackles. Left upper thora vent in a Place ABDOMEN: Soft, nontender, nondistended, normoactive bowel sounds. No palpable organomegaly. MUSCULOSKELETAL: No joint swelling or deformity. EXTREMITIES: No cyanosis, clubbing, or pedal edema. NEUROLOGICAL: Gross neurological examination did not reveal any focal deficits. SKIN: No rashes. no petechiae. - Labs CBC & Chem 7: 04/01/22 08:42 04/01/22 08:42 Labs: Abnormal Lab Results - Last 24 Hours (Table) 03/31/22 04/01/22 Range/Units 14:52 08:42 BUN 21 H (9-20) mg/dL Glucose 108 H (74-99) mg/dL Plasma Lactic Acid Scooby 0.6 L (0.7-2.0) mmol/L Assessment and Plan Assessment: Acute displaced posterior left fourth rib fracture. Left apical pneumothorax 15-20% status post Thora vent placement. Repeat chest x-ray showing size 1.2 cm on 04/01 Left basilar small pleural fluid collection versus blood product. Status post fall off a ladder and fell concrete 4 feet down. Plan: This is a pleasant 56 years old male who presents with fall and left pneumo thorax status post Thora vent He denies any other complaints. Pulmonary and cardiothoracic surgery team on the place. Follow-up chest x-ray this afternoon, follow-up recommendation by surgical team. Labs and medication were reviewed.. Continue same treatment. Continue with symptomatic treatment. Resume home medication. Monitor lytes and vitals. DVT and GI prophylaxis. Further recommendationsas per clinical course of the patient DVT prophylaxis: Low risk, patient is mobile GI Prophylaxis: Patient is asymptomatic, doing well, no need Thank you for consulting us
--- NOTE | 2022-04-01 13:17 | P.PN ---
Subjective Progress Note Date: 04/01/22 56-year-old male patient who presented to the emergency department but are not 03/31/2022 after sustaining a fall from a ladder 4 feet off the ground and landing on his back in the rib area while getting something out of the attic. Patient stated that the only area of tenderness was along the ribs in the back, and it hurt to take a deep breath, but patient was not complaining of any dyspnea. No complaints of anterior chest pain. No lower back pain, no abdominal pain, no pain in extremities. Denies hitting his head or neck. Chest x-ray of the ribs showed acute displaced posterior left fourth rib fracture, and small left apical pneumothorax estimated at 50-20% with a left basilar small to tiny pleural fluid collection and associated basilar atelectasis. Left sided Thoravent chest tube was placed by ER physician, and postprocedure chest x-ray showed interval insertion of the left chest to with smaller left-sided pneumothorax. Cardiothoracic surgery has been consulted please defer to the consultation note, lab evaluation showed white blood cell count of 12.2, hemoglobin of 14.8, electrolytes and renal profile were unremarkable, glucose was 137, LFTs are within normal limits. Patient is receiving Toradol, [place], and IV Dilaudid for breakthrough pain. Patient is currently on 2 L of oxygen pulse ox is 98%, he is afebrile, hemodynamically stable. On today's evaluation of 04/01/2022, the patient is doing well. No specific complaints. The patient has a Thoravent on the left. Repeat chest x-ray showed the especially the left lung and the patient had the Thoravent. No reported chest pain other than the ones related to the trauma. The patient had a left- sided rib fracture related to the fall. Pain is under good control for now. He is on room air oxygen. Using incentive spirometer. Objective - Vital Signs Vital signs: Vital Signs Temp 97.3 F L 04/01/22 08:00 Pulse 81 04/01/22 08:00 Resp 16 04/01/22 04:15 BP 123/76 04/01/22 08:00 Pulse Ox 96 04/01/22 08:00 FiO2 Intake & Output 03/31/22 04/01/22 04/01/22 18:59 06:59 18:59 Intake Total 240 240 Balance 240 240 Weight 104.326 kg 169 kg Intake: Oral 240 240 Other: Voiding Method Toilet Toilet # Voids 2 - Exam GENERAL EXAM: Alert, very pleasant, 48-year-old white male on room air oxygen HEAD: Normocephalic/atraumatic. EYES: Normal reaction of pupils, equal size. Conjunctiva pink, sclera white. NOSE: Clear with pink turbinates. THROAT: No erythema or exudates. NECK: No masses, no JVD, no thyroid enlargement, no adenopathy. CHEST: No chest wall deformity. Symmetrical expansion. Left upper chest thoravent in place , currently capped LUNGS: Equal air entry with no crackles, wheeze, rhonchi or dullness. CVS: Regular rate and rhythm, normal S1 and S2, no gallops, no murmurs, no rubs ABDOMEN: Soft, nontender. No hepatosplenomegaly, normal bowel sounds, no guarding or rigidity. EXTREMITIES: No clubbing, no edema, no cyanosis, 2+ pulses and upper and lower extremities. MUSCULOSKELETAL: Muscle strength and tone normal. SPINE: No scoliosis or deformity SKIN: No rashes CENTRAL NERVOUS SYSTEM: Alert and oriented -3. No focal deficits, tone is normal in all 4 extremities. PSYCHIATRIC: Alert and oriented -3. Appropriate affect. Intact judgment and insight. - Labs CBC & Chem 7: 04/01/22 08:42 04/01/22 08:42 Labs: Abnormal Lab Results - Last 24 Hours (Table) 03/31/22 04/01/22 Range/Units 14:52 08:42 BUN 21 H (9-20) mg/dL Glucose 108 H (74-99) mg/dL Plasma Lactic Acid Scooby 0.6 L (0.7-2.0) mmol/L Assessment and Plan Plan: Assessment: #1. Left apical pneumothorax related to acute displaced left fourth rib fracture, status post left thoravent placement on 03/31/2022 #2. Fall, sustaining left-sided fourth rib fracture and left apical pneumothorax #3. Lifetime nonsmoker Plan Left-sided pneumothorax recovered Thoravent was discontinued from the pleural records currently capped Repeat chest x-ray at 1300 today May possibly remove the Thoravent at the later stage Currently on room air oxygen Possible discharge depending on his condition.
--- NOTE | 2022-04-01 13:29 | P.GSHP ---
History of Present Illness H&P Date: 04/01/22 Patient seen and examined at 9:10 this morning CHIEF COMPLAINT: Fall with left-sided rib pain and shortness of breath HISTORY OF PRESENT ILLNESS: This is a 56-year-old male who was on a 4 foot licha er in his garage. The latter that and he landed on cement on the left side of his rib cage. Patient reports that he was having severe pain shortness of breath and came into the ER for further evaluation. Patient denies any loss of consciousness or hitting his head. Denies any abdominal pain. Denies any nausea or vomiting. He reports that he has had improvement of his pain since being hospitalized. He was found to have a left fourth rib fracture and a left pneumothorax and required Thoravent placement in the ER. Patient is been seen by pulmonary service and cardiothoracic service. He is on room air satting at 97%. Patient reports that his pain and shortness of breath are showing imp rovement. He has been up and ambulating in the room. Patient has been admitted to trauma service. Patient seen and examined with Dr. valladares PAST MEDICAL HISTORY: See list. PAST SURGICAL HISTORY: See list. MEDICATIONS: See list. ALLERGIES: See list. SOCIAL HISTORY: No illicit drug use. REVIEW OF SYSTEMS: CONSTITUTIONAL: Denies fever or chills. HEENT: Denies blurred vision, vision changes, or eye pain. Denies hemoptysis CARDIOVASCULAR: Denies chest pain or pressure. RESPIRATORY: No shortness of breath. GASTROINTESTINAL: See HPI for pertinent findings HEMATOLOGIC: Denies bleeding disorders. GENITOURINARY: Denies any blood in urine or increased urinary frequency. SKIN: Denies pruitis. Denies rash. PHYSICAL EXAM: VITAL SIGNS: Reviewed GENERAL: Well-developed in no acute distress. HEENT: No sclera icterus. Extraocular movements grossly intact. Moist buccal mucosa. Head is atraumatic, normocephalic. No nasal drainage. CHEST: has thoravent left upper chest ABDOMEN: Soft. Nondistended. Nontender NEUROLOGIC: Alert and oriented. Cranial nerves II through XII grossly intact. LABORATORY DATA: WBC 12.2 down to 7.6 hemoglobin is 14 plt 176 Sodium 140 potassium 4.5 creatinine 1.08 Lactic acid 0.6 LFTs normal IMAGING: Chest x-ray from today left-sided Thoravent catheter in place. redemonstrated displaced left posterior fourth rib fracture. A small left apical pneumothorax remains. Minimally increased in size at 1.2 cm versus 7 mm. Continued small left pleural effusion with adjacent atelectasis and/or consolidation Chest x-ray from yesterday acute displaced posterior left fourth rib fracture. Small left apical pneumothorax estimated at 15-20% with left basilar small to tiny pleural effusion collection or blood products and associated basilar at electasis and/or infiltrate. ASSESSMENT: 1. Fall with left fourth rib fracture and left apical pneumothorax 2. Left apical pneumothorax status post Thoravent placement PLAN: -Await further recommendations per cardiothoracic service -Thora vent management per cardiothoracic service. Thoravent currenly capped -Encouraged patient to use incentive spirometer -Encouraged patient to increase activity -Continue pain medication as needed -Continue regular diet Physician Car Retarder Operator note has been reviewed by physician. Signing provider agrees with the documented findings, assessment, and plan of care. Past Medical History Past Medical History: No Reported History History of Any Multi-Drug Resistant Organisms: MRSA Date of last positivie culture/infection: 2012 MDRO Source:: face Past Surgical History: No Surgical Hx Reported Past Psychological History: No Psychological Hx Reported Smoking Status: Never smoker Past Alcohol Use History: None Reported Past Drug Use History: None Reported - Past Family History Mother Additional Family Medical History / Comment(s): History of brain aneurysm Father Family Medical History: Cancer (Prostate cancer) Additional Family Medical History / Comment(s): Alzheimer's/dementia Medications and Allergies Home Medications Medication Instructions Recorded Confirmed Type No Known Home Medications 10/04/16 03/31/22 History Allergies Allergy/AdvReac Type Severity Reaction Status Date / Time No Known Allergies Allergy Verified 03/31/22 09:44 Surgical - Exam Vital Signs Temp Pulse Resp BP Pulse Ox 98.2 F 69 18 127/83 95 03/31/22 07:57 03/31/22 07:57 03/31/22 07:57 03/31/22 07:57 03/31/22 07:57 Results - Labs 04/01/22 08:42 04/01/22 08:42 Abnormal Lab Results - Last 24 Hours (Table) 03/31/22 04/01/22 Range/Units 14:52 08:42 BUN 21 H (9-20) mg/dL Glucose 108 H (74-99) mg/dL Plasma Lactic Acid Scooby 0.6 L (0.7-2.0) mmol/L Diabetes panel 04/01/22 Range/Units 08:42 Sodium 140 (137-145) mmol/L Potassium 4.5 (3.5-5.1) mmol/L Chloride 103 (98-107) mmol/L Carbon Dioxide 26 (22-30) mmol/L BUN 21 H (9-20) mg/dL Creatinine 1.08 (0.66-1.25) mg/dL Glucose 108 H (74-99) mg/dL Calcium 9.1 (8.4-10.2) mg/dL Calcium panel 04/01/22 Range/Units 08:42 Calcium 9.1 (8.4-10.2) mg/dL Pituitary panel 04/01/22 Range/Units 08:42 Sodium 140 (137-145) mmol/L Potassium 4.5 (3.5-5.1) mmol/L Chloride 103 (98-107) mmol/L Carbon Dioxide 26 (22-30) mmol/L BUN 21 H (9-20) mg/dL Creatinine 1.08 (0.66-1.25) mg/dL Glucose 108 H (74-99) mg/dL Calcium 9.1 (8.4-10.2) mg/dL Adrenal panel 04/01/22 Range/Units 08:42 Sodium 140 (137-145) mmol/L Potassium 4.5 (3.5-5.1) mmol/L Chloride 103 (98-107) mmol/L Carbon Dioxide 26 (22-30) mmol/L BUN 21 H (9-20) mg/dL Creatinine 1.08 (0.66-1.25) mg/dL Glucose 108 H (74-99) mg/dL Calcium 9.1 (8.4-10.2) mg/dL
--- NOTE | 2022-04-01 15:44 | XR ---
EXAMINATION TYPE: XR chest 2V DATE OF EXAM: 04/01/2022 COMPARISON: Chest x-ray same dated earlier time HISTORY: Pneumothorax, chest tube TECHNIQUE: Frontal and lateral views of the chest are obtained. FINDINGS: Posterior left displaced fourth rib fracture is again noted. Thoracic vent catheter is in place. Minimal left apical pneumothorax is thought to be stable. There is persistent patchy density a t the lung bases left greater than right. Cardiac mediastinal sweat is stable. IMPRESSION: Chest tube in place. Minimal left apical pneumothorax, displaced rib fracture all again noted.
[2022-04-02] MEDS: KETOROLAC 15 MG/ML 1 ML VIAL IVP SCH ×2 (00:44→09:39)
--- NOTE | 2022-04-02 07:25 | XR ---
EXAMINATION TYPE: XR chest 1V portable DATE OF EXAM: 04/02/2022 COMPARISON: 04/01/2022 INDICATION: Left pneumothorax TECHNIQUE: Single frontal view of the chest is obtained. FINDINGS: The heart size is normal. The pulmonary vasculature is normal. Minimal left pleural effusion is present. Suspicious infiltrates are evident. There is a small left apical pneumothorax. Left-sided Pleur-evac remains in position. IMPRESSION: 1. Small stable left apical pneumothorax. 2. Minimal left pleural effusion stable.
--- NOTE | 2022-04-02 08:12 | P.PN ---
Subjective Progress Note Date: 04/02/22 Principal diagnosis: Left apical pneumothorax status post fall from ladder with an acute displaced left fourth rib fracture, with subsequent left Thoravent placed by the emergency room physician. No significant past medical history and is a lifetime nonsmoker. The patient was seen and examined this morning sitting up in a recliner on the cardiac stepdown unit in no acute distress. States pain is controlled on current medication regimen, denies increased shortness of breath. States he feels better than when he came in. Currently on room air with oxygen saturation in the mid 90s. Able to achieve 1500 mL on his incentive spirometry. Patient has been ambulatory around the room without difficulty. Remains in sinus rhythm and hemodynamically stable. Chest x-ray reviewed, no increased pneumothorax after 24 hours with thoravent capped Objective - Vital Signs Vital signs: Vital Signs Temp 98.1 F 04/02/22 04:00 Pulse 68 04/02/22 04:00 Resp 16 04/02/22 04:00 BP 131/71 04/02/22 04:00 Pulse Ox 95 04/02/22 04:00 FiO2 Intake & Output 04/01/22 04/02/22 04/02/22 18:59 06:59 18:59 Intake Total 1190 Balance 1190 Intake: Oral 1190 Other: Voiding Method Toilet Toilet # Voids 2 1 - Exam CONSTITUTIONAL: Appears comfortable, cooperative, no acute distress RESPIRATORY: Lungs sounds clear bilaterally. Respirations even, nonlabored. Currently on room air with oxygen saturation 95%. Able to achieve 1500 mL on incentive spirometry CARDIOVASCULAR: S1, S2 present. Regular rate and rhythm, sinus rhythm on telemetry. Palpable peripheral pulses bilaterally. No edema present. No calf pain or tenderness noted GASTROINTESTINAL: Abdomen soft, nontender, nondistended. Active bowel sounds present 4 quadrants. Tolerating diet GENITOURINARY: Continues to void INTEGUMENTARY: Skin is warm and dry NEUROLOGIC: Cranial nerves II through XII intact MUSKULOSKELETAL: Able to move all extremities, strength equal bilaterally, gait normal PSYCHIATRIC: Alert and oriented to person place and time, appropriate affect, intact judgment and insight INVASIVE LINES AND TUBES: Left thoravent present, occlusive cap in place for 24 hours - Allied health notes Allied health notes reviewed: nursing - Labs CBC & Chem 7: 04/01/22 08:42 04/01/22 08:42 Labs: Abnormal Lab Results - Last 24 Hours (Table) 04/01/22 Range/Units 08:42 BUN 21 H (9-20) mg/dL Glucose 108 H (74-99) mg/dL - Imaging and Cardiology Chest x-ray: report reviewed, image reviewed Assessment and Plan Assessment: 1. Left pneumothorax, status post fall from ladder, status post placement of left-sided thoravent with occlusive cap in place for the last 24 hours 2. Left-sided chest pain with acute displaced left fourth rib fracture 3. Obesity 4. Lifetime nonsmoker Plan: 1. Will remove thoravent, dressing to remain in place for 48 hours 2. Continue to encourage use of incentive spirometry 10 times every hour while awake. 3. Encourage activity as tolerated. 4. Pain control per current medication regimen 5. Medical management and other comorbidities per primary care service. 6. Patient cleared for discharge to home after thoravent removal
[2022-04-02 09:34] VITALS: BP 112/72; PULSE 72; RESP 15; TEMP 98
--- NOTE | 2022-04-02 10:41 | P.PN ---
Subjective Progress Note Date: 04/02/22 56-year-old male patient who presented to the emergency department but are not 03/31/2022 after sustaining a fall from a ladder 4 feet off the ground and landing on his back in the rib area while getting something out of the attic. Patient stated that the only area of tenderness was along the ribs in the back, and it hurt to take a deep breath, but patient was not complaining of any dyspnea. No complaints of anterior chest pain. No lower back pain, no abdominal pain, no pain in extremities. Denies hitting his head or neck. Chest x-ray of the ribs showed acute displaced posterior left fourth rib fracture, and small left apical pneumothorax estimated at 50-20% with a left basilar small to tiny pleural fluid collection and associated basilar atelectasis. Left sided Thoravent chest tube was placed by ER physician, and postprocedure chest x-ray showed interval insertion of the left chest to with smaller left-sided pneumothorax. Cardiothoracic surgery has been consulted please defer to the consultation note, lab evaluation showed white blood cell count of 12.2, hemoglobin of 14.8, electrolytes and renal profile were unremarkable, glucose was 137, LFTs are within normal limits. Patient is receiving Toradol, [place], and IV Dilaudid for breakthrough pain. Patient is currently on 2 L of oxygen pulse ox is 98%, he is afebrile, hemodynamically stable. On today's evaluation of 04/01/2022, the patient is doing well. No specific complaints. The patient has a Thoravent on the left. Repeat chest x-ray showed the especially the left lung and the patient had the Thoravent. No reported chest pain other than the ones related to the trauma. The patient had a left- sided rib fracture related to the fall. Pain is under good control for now. He is on room air oxygen. Using incentive spirometer. 04/02/2022, the patient is stable. Repeat chest x-ray from today shows a very very tiny left apical pneumothorax. The Thoravent is still. Doing well. No specific complaints. Pain is under adequate control. Made recommendations to remove the Thoravent and discharge the patient home to be followed up on outpatient basis. Objective - Vital Signs Vital signs: Vital Signs Temp 98.0 F 04/02/22 09:33 Pulse 72 04/02/22 09:33 Resp 15 04/02/22 09:33 BP 112/72 04/02/22 09:33 Pulse Ox 96 04/02/22 09:33 FiO2 Intake & Output 04/01/22 04/02/22 04/02/22 18:59 06:59 18:59 Intake Total 1190 420 Balance 1190 420 Intake: Oral 1190 420 Other: Voiding Method Toilet Toilet # Voids 2 1 - Exam GENERAL EXAM: Alert, very pleasant, 48-year-old white male on room air oxygen HEAD: Normocephalic/atraumatic. EYES: Normal reaction of pupils, equal size. Conjunctiva pink, sclera white. NOSE: Clear with pink turbinates. THROAT: No erythema or exudates. NECK: No masses, no JVD, no thyroid enlargement, no adenopathy. CHEST: No chest wall deformity. Symmetrical expansion. Left upper chest thoravent in place , currently capped LUNGS: Equal air entry with no crackles, wheeze, rhonchi or dullness. CVS: Regular rate and rhythm, normal S1 and S2, no gallops, no murmurs, no rubs ABDOMEN: Soft, nontender. No hepatosplenomegaly, normal bowel sounds, no guarding or rigidity. EXTREMITIES: No clubbing, no edema, no cyanosis, 2+ pulses and upper and lower extremities. MUSCULOSKELETAL: Muscle strength and tone normal. SPINE: No scoliosis or deformity SKIN: No rashes CENTRAL NERVOUS SYSTEM: Alert and oriented -3. No focal deficits, tone is normal in all 4 extremities. PSYCHIATRIC: Alert and oriented -3. Appropriate affect. Intact judgment and insight. - Labs CBC & Chem 7: 04/01/22 08:42 04/01/22 08:42 Assessment and Plan Plan: Assessment: #1. Left apical pneumothorax related to acute displaced left fourth rib fracture, status post left thoravent placement on 03/31/2022 #2. Fall, sustaining left-sided fourth rib fracture and left apical pneumothorax #3. Lifetime nonsmoker Plan: Provide incentive spirometer Remove the Thoravent and discharge the patient home to followed up on outpatient basis in 1 week for repeat chest x-ray. No for for pain control. Continue using incentive spirometer.
--- NOTE | 2022-04-02 11:26 | P.DS ---
Providers Date of admission: 03/31/22 13:29 Expected date of discharge: 04/02/22 Attending physician: Kimo Worthy Consults: 03/31/22 13:29 Consult Physician Routine Consulting Provider: Cristina James Consult Reason/Comments: Pneumothorax Do you want consulting provider notified?: Yes Consult Physician Routine Consulting Provider: Raiza Mccauley Consult Reason/Comments: Medical management Do you want consulting provider notified?: Yes Consult Physician Routine Consulting Provider: Jordy Wong Consult Reason/Comments: Pneumothorax Do you want consulting provider notified?: Yes Primary care physician: Stated None Hospital Course: Discharge diagnosis 1. Fall with left fourth rib fracture and traumatic left apical pneumothorax 2. Left apical pneumothorax status post Thoravent placement Hospital course This is a 56-year-old male who was on a 4 foot ladder in his garage. The ladder fell and he landed on the cement floor on the left side of his rib cage. Patient reports that he was having severe pain and shortness of breath and came into the ER for further evaluation. Patient denies any loss of consciousness or hitting his head. Denies any abdominal pain. Denies any nausea or vomiting. He reports that he has had improvement of his pain since being hospitalized. He was found to have a left fourth rib fracture and a left pneumothorax and requir ed Thoravent placement in the ER. Patient is been seen by pulmonary service and cardiothoracic service. Thoravent has been removed. Patient remains on room air satting at 96%. Patient is up and ambulating. His pain is controlled. He is afebrile. Patient has been cleared by cardiothoracic service and pulmonary service for discharge. Please refer to chart for any further details. Physician Brick Dropper note has been reviewed by physician. Signing provider agrees with the documented findings, assessment, and plan of care. Patient Condition at Discharge: Stable Plan - Discharge Summary Discharge Rx Participant: Yes New Discharge Prescriptions: New Ibuprofen [Motrin] 600 mg PO Q8HR PRN #30 tab PRN Reason: Pain HYDROcodone/APAP 5-325MG [[place] 5-325] 1 tab PO Q6HR PRN 3 Days #12 tab PRN Reason: Pain Discharge Medication List HYDROcodone/APAP 5-325MG [[place] 5-325] 1 tab PO Q6HR PRN 3 Days #12 tab 04/01/22 [Rx] Ibuprofen [Motrin] 600 mg PO Q8HR PRN #30 tab 04/01/22 [Rx] Follow up Appointment(s)/Referral(s): None,Stated [Primary Care Provider] - 1-2 days Cristina James MD [STAFF PHYSICIAN] - 1 Week Activity/Diet/Wound Care/Special Instructions: May remove dressing after 48 hours; may shower Light activity Frequent ambulating Continue to use incentive spirometer Diet regular Discharge Disposition: HOME SELF-CARE
--- NOTE | 2022-04-03 00:31 | P.PN ---
Subjective Patient is a 56-year-old without significant past medical history presents to ER after he fell off a ladder from about 4 feet high. Patient landed on his left upper back and rib area. Presents to ER due to tenderness and shortness of breath with deep breathing. Patient was also having pleuritic chest pain. Denies any complaints of shoulder pain. He denies any hitting his head. Complains of back pain and leg pain. Patient otherwise denies any recent illnesses. No cough or sputum production. No chest pain. X-ray of the ribs and chest x-ray showed acute displaced posterior left fourth rib fracture. Small left apical pneumothorax estimated 15 to 20% with left basilar small to tiny pleural fluid collection or blood product and associated basilar atelectasis Laboratory data showed WBC 12.2 hemoglobin 14.8 and platelets 200 Sodium 142 potassium 4.3 chloride 106 bicarb is 24 BUN 21 and creatinine 1.17 and blood sugar is 137 lactic acid 0.6 liver enzymes are not elevated. 04/01/2022 patient walking in his room with no difficulty. Has some pain in his left sided rib fracture area, this mild uncontrolled with pain. Still has left upper chest Thora vent in place. He has no dyspnea. He is saturating 96% on room air. Chest x-ray: Left side thora vent catheter in place. Displaced left posterior fourth rib fracture. A small left apical pneumothorax remains. Increase in size 7 mm up to 1.2 cm Leukocytosis resolved. Cardiothoracic surgery team are planning to repeat chest x-ray this afternoon 04/02/2022 Patient was seen today walking in his room, fairly normal and back to baseline. His thora vent was discontinued by surgical team already He denies chest pain or dyspnea, his minimal chest pain from fracture is signif icantly improving. No coughing. No GI or urinary symptoms. No headache or weakness or fever. Hemodynamically and labs are stable. Consultants on the case including surgery primary team and pulmonary team Patient is medically stable Objective - Vital Signs Vital signs: Vital Signs Temp 98.0 F 04/02/22 09:33 Pulse 72 04/02/22 09:33 Resp 15 04/02/22 09:33 BP 112/72 04/02/22 09:33 Pulse Ox 96 04/02/22 09:33 FiO2 Intake & Output 04/01/22 04/02/22 04/02/22 18:59 06:59 18:59 Intake Total 1190 420 Balance 1190 420 Intake: Oral 1190 420 Other: Voiding Method Toilet Toilet Toilet # Voids 2 1 - Exam GENERAL: The patient is alert and oriented x3, not in any acute distress. Well developed, well nourished. HEENT: Pupils are round and equally reacting to light. EOMI. No scleral icterus. No conjunctival pallor. Normocephalic, atraumatic. No pharyngeal erythema. No thyromegaly. CARDIOVASCULAR: S1 and S2 present. No murmurs, rubs, or gallops. PULMONARY: Chest is clear to auscultation, no wheezing or crackles. ABDOMEN: Soft, nontender, nondistended, normoactive bowel sounds. No palpable organomegaly. MUSCULOSKELETAL: No joint swelling or deformity. EXTREMITIES: No cyanosis, clubbing, or pedal edema. NEUROLOGICAL: Gross neurological examination did not reveal any focal deficits. SKIN: No rashes. no petechiae. - Labs CBC & Chem 7: 04/01/22 08:42 04/01/22 08:42 Assessment and Plan Assessment: Acute displaced posterior left fourth rib fracture. Left apical pneumothorax 15-20% status post Thora vent placement. Repeat chest x-ray showing size 1.2 cm on 04/01 Left basilar small pleural fluid collection versus blood product. Status post fall off a ladder and fell concrete 4 feet down. Plan: This is a pleasant 56 years old male who presents with fall and left pneumothorax status post Thora vent He denies any other complaints. Pulmonary and cardiothoracic surgery team on the place. follow-up recommendation by surgical team. Labs and medication were reviewed.. Continue same treatment. Continue with symptomatic treatment. Resume home medication. Monitor lytes and vitals. DVT and GI prophylaxis. Further recommendations as per clinical course of the patient DVT prophylaxis: Low risk, patient is mobile GI Prophylaxis: Patient is asymptomatic, doing well, no need Patient is medically stable. Patient instructed to follow up with PCP in one week after discharge Thank you for consulting us
--- NOTE | 2022-04-03 09:32 | CONS ---
CONSULTATION DATE OF SERVICE : I have seen, examined, and agree with the midlevel's findings. I met with this patient for 45 minutes during this consultation. BERNARDO / IJN: [id number] / -[id number]
== END 2022-04-02 14:30 | disposition home or self-care (01) | DRG 200 ==
LOC: EC 07:46 → 3SCARD 13:29
PROVIDERS: ADMIT Surgery; ATTEND Surgery
PROC: 0W9B30Z Drainage of Left Pleural Cavity with Drainage Device, Percutaneous Approach (ICD-10-PCS; principal; 2022-03-31)
DX: S27.0XXA Traumatic pneumothorax, initial encounter (principal); S22.32XA Fracture of one rib, left side, initial encounter for closed fracture; Z68.42 Body mass index [BMI] 45.0-49.9, adult; W11.XXXA Fall on and from ladder, initial encounter; E66.9 Obesity, unspecified; Z82.0 Family history of epilepsy and other diseases of the nervous system; Z86.14 Personal history of Methicillin resistant Staphylococcus aureus infection; M54.9 Dorsalgia, unspecified; M79.606 Pain in leg, unspecified
CPT/HCPCS: 36415; 71045; 71046; 80048; 80053; 83605; 85025; 96372; 96374; 96375; 99285